=== PATIENT | female | born 1995 | race Caucasian/White ===

== ENCOUNTER 2016-11-25 21:42 | Inpatient (IN) | payer MEDICAID ==
[~2016-11-25] VITALS: Ht 152.4 cm; Wt 48.7 kg
[~2016-11-25 21:42] MED LIST: PNV1TABL17 PO
[2016-11-25 22:02] LABS: GLUCOSE,POINT OF CARE 85 MG/DL (70-110)
[2016-11-25] MEDS ORDERED: TRAM50TA4 PO (22:02)
[2016-11-25] MEDS ORDERED: LORA1TAB3 PO (22:02)
[2016-11-25 22:28] LABS: BASOPHILS % (AUTO) 0.4 % (0.0-2.0); EOSINOPHILS % (AUTO) 2.3 % (1.0-6.0); HEMATOCRIT 40.2 % (36-46); HEMOGLOBIN 12.9 g/dL (12.0-16.0); LYMPHOCYTES # (AUTO) 3.6 K/uL (1.0-4.8); LYMPHOCYTES % (AUTO) 40.1 % (22.0-44.0); MEAN CORPUSCULAR HEMOGLOBIN 28.4 pg (26.0-34.0); MEAN CORPUSCULAR HGB CONC 32.1 G/dL (31.0-37.0); MEAN CORPUSCULAR VOLUME 89 fL (80-100); MONOCYTES # (AUTO) 0.9 K/uL (0.1-1.0); MONOCYTES % (AUTO) 9.7 % (2.0-9.0); NEUTROPHILS # (AUTO) 4.2 K/uL (1.8-7.7); NEUTROPHILS % (AUTO) 47.5 % (40.0-70.0); PLATELET COUNT (AUTO) 311 K/uL (150-450); RED BLOOD CELL COUNT(AUTO) 4.54 MIL/uL (4.00-5.20); RED CELL DISTRIBUTION WIDTH 13.2 % (11.5-14.5); WHITE BLOOD COUNT (AUTO) 8.9 K/uL (4.5-11.0)
[2016-11-25 22:37] LABS: ANION GAP 11 mmol/L (8-16); CALCIUM, TOTAL 8.5 mg/dL (8.8-10.5); CARBON DIOXIDE 25 mmol/L (22-29); CHLORIDE 104 mmol/L (98-107); CREATININE 0.68 mg/dL (0.60-1.30); GLOMERULAR FILTR. RATE CALC > 60 mL/min (>60); POTASSIUM 3.1 mmol/L (3.5-5.1); SODIUM SERUM 140 mmol/L (136-145); UREA NITROGEN, BLOOD 7 mg/dL (7-18)
[2016-11-25 22:43] LABS: ALANINE AMINOTRANSFERASE 17 U/L (12-78); ALBUMIN 3.7 g/dL (3.4-5.0); ASPARTATE AMINOTRANSFERASE 12 U/L (15-37); BILIRUBIN,TOTAL 0.3 mg/dL (0.1-1.0)
[2016-11-25 22:49] LABS: SALICYLATE < 2.8 mg/dL (2.8-20.0)
[2016-11-25 22:53] LABS: ACETAMINOPHEN 12 mcg/mL (10-30)
[2016-11-26] MEDS ORDERED: POTASSIUM CHLORIDE 10% 40 MEQ/30 ML LIQUID UDCUP PO ONE (02:15)
[2016-11-26] MEDS ORDERED: HALOPERIDOL 5 MG TABLET PO PRN (02:30)
[2016-11-26] MEDS ORDERED: LORazepam 2 MG TABLET PO PRN (02:30)
[2016-11-26 03:03] LABS: APPEARANCE,URINE CLOUDY (CLEAR); GLUCOSE, URINE (UA) NEGATIVE (NEGATIVE); KETONES,URINE >=80 mg/dL (NEGATIVE); LEUKOCYTE ESTERASE ,URINE NEGATIVE (NEGATIVE); OCCULT BLOOD,URINE NEGATIVE (NEGATIVE); PROTEIN,URINE NEGATIVE (NEGATIVE)
[2016-11-26 03:05] LABS: ADD UA MICROSCOPIC NO
[2016-11-26 04:18] VITALS: BP 126/78
[2016-11-26] MEDS ORDERED: PNEUMOCOCCAL VACCINE POLYVALENT 0.5 ML VIAL [PPSV23] IM ONE (04:45)
[2016-11-26 08:05] VITALS: BP 113/73
[2016-11-26 08:42] LABS: CHOL/HDL RATIO 4.3 (3.9-5.7)
[2016-11-26] MEDS: ESCITALOPRAM OXALATE 10 MG TABLET PO SCH (12:46)
[2016-11-26] MEDS: LORazepam 1 MG TABLET PO PRN (16:23)
[2016-11-26 20:10] VITALS: BP 121/74
[2016-11-26] MEDS ORDERED: ACETAMINOPHEN 325 MG TABLET PO PRN (20:15)
[2016-11-26] MEDS ORDERED: ALBUTEROL SULFATE HFA 90 MCG/PUFF 8 GM INHALER IH PRN (20:15)
[2016-11-26] MEDS ORDERED: IBUPROFEN 400 MG TABLET PO PRN (20:15)
[2016-11-26] MEDS: ZOLPIDEM TARTRATE 10 MG TABLET PO PRN (21:13)
[2016-11-27 00:02] VITALS: BP 126/76
[2016-11-27 07:27] LABS: HEMOGLOBIN A1C 5.4 % (4.5-6.2)
[2016-11-27 07:45] LABS: CHOL/HDL RATIO 4.4 (3.9-5.7)
[2016-11-27 07:50] LABS: POTASSIUM 3.9 mmol/L (3.5-5.1)
[2016-11-27 08:19] VITALS: BP 131/81
[2016-11-27] MEDS: ESCITALOPRAM OXALATE 10 MG TABLET PO SCH (09:13)
[2016-11-27] MEDS: LORazepam 1 MG TABLET PO PRN ×2 (09:13→16:31)
[2016-11-27] MEDS ORDERED: ESCI10TA PO (14:51)
[2016-11-27 19:43] VITALS: BP 129/76
[2016-11-28 03:00] VITALS: BP 127/75
[2016-11-28] MEDS: ZOLPIDEM TARTRATE 10 MG TABLET PO PRN (03:08)
[2016-11-28 08:00] VITALS: BP 139/71
[2016-11-28] MEDS: LORazepam 1 MG TABLET PO PRN (09:01)
[2016-11-28] MEDS: ESCITALOPRAM OXALATE 10 MG TABLET PO SCH (09:01)
== END 2016-11-28 10:35 | disposition home or self-care (01) | DRG 751 ==
LOC: EMS 21:44 → 3EI 11-26 03:06
DX: F33.2 Major depressive disorder, recurrent severe without psychotic features (principal); E87.6 Hypokalemia; F12.90 Cannabis use, unspecified, uncomplicated; F43.12 Post-traumatic stress disorder, chronic; J45.909 Unspecified asthma, uncomplicated; T42.4X2A Poisoning by benzodiazepines, intentional self-harm, initial encounter; Y92.099 Unspecified place in other non-institutional residence as the place of occurrence of the external cause
CPT/HCPCS: 82962; 83036; 84132; 93005; 99285; G0480; G0481

== ENCOUNTER 2024-06-10 10:18 | Emergency (ER) | payer MEDICAID ==
[~2024-06-10] VITALS: Ht 157.5 cm; Wt 60.0 kg
[~2024-06-10 10:18] MED LIST changes: +ESCI-8 PO; -PNV1TABL17 PO
[2024-06-10 12:02] LABS: BASOPHILS % (AUTO) 0.4 % (0.0-2.0); EOSINOPHILS % (AUTO) 0.2 % (1.0-6.0); HEMATOCRIT 41.8 % (36-46); HEMOGLOBIN 13.9 g/dL (12.0-16.0); LYMPHOCYTES # (AUTO) 1.7 K/uL (1.0-4.8); LYMPHOCYTES % (AUTO) 15.6 % (22.0-44.0); MEAN CORPUSCULAR HGB CONC 33.2 G/dL (31.0-37.0); MEAN CORPUSCULAR VOLUME 88 fL (80-100); MONOCYTES # (AUTO) 0.7 K/uL (0.1-1.0); MONOCYTES % (AUTO) 6.7 % (2.0-9.0); NEUTROPHILS # (AUTO) 8.6 K/uL (1.8-7.7); NEUTROPHILS % (AUTO) 77.1 % (40.0-70.0); PLATELET COUNT (AUTO) 355 K/uL (150-450); RED BLOOD CELL COUNT(AUTO) 4.77 MIL/uL (4.00-5.20); RED CELL DISTRIBUTION WIDTH 13.2 % (11.5-14.5); WHITE BLOOD COUNT (AUTO) 11.1 K/uL (4.5-11.0)
[2024-06-10 12:10] LABS: ANION GAP 9 mmol/L (8-16); CALCIUM, TOTAL 8.6 mg/dL (8.8-10.5); CARBON DIOXIDE 24 mmol/L (22-29); CHLORIDE 106 mmol/L (98-107); CREATININE 0.72 mg/dL (0.60-1.30); GLOMERULAR FILTR. RATE CALC > 60 mL/min (>60); GLUCOSE,RANDOM 93 mg/dL (70-110); POTASSIUM 3.8 mmol/L (3.5-5.1); SODIUM SERUM 139 mmol/L (136-145); UREA NITROGEN, BLOOD 8 mg/dL (7-18)
[2024-06-10 12:13] LABS: COVID AG,FIA SOURCE NPH
[2024-06-10 12:42] LABS: ALCOHOL, BLOOD (SERUM) < 3 mg/dL (0-10)
[2024-06-10 12:47] LABS: TROPONIN I-HIGH SENSITIVITY Less Than 4 ng/L (<51)
[2024-06-10 12:48] LABS: HCG,QUANTITATIVE 1 mIU/mL (0-6)
[2024-06-10 13:07] LABS: SARS-COV2 (COVID) ANTIGEN,FIA Negative (Negative)
[2024-06-10] MEDS: TraMADol HCL 50 MG TABLET PO ONE (15:54)
[2024-06-10 16:41] LABS: APPEARANCE,URINE CLEAR (CLEAR); BILIRUBIN,URINE NEGATIVE (NEGATIVE); COLOR,URINE COLORLESS (YELLOW); GLUCOSE, URINE (UA) NEGATIVE (NEGATIVE); KETONES,URINE NEGATIVE (NEGATIVE); LEUKOCYTE ESTERASE ,URINE NEGATIVE (NEGATIVE); NITRATE,URINE NEGATIVE (NEGATIVE); OCCULT BLOOD,URINE NEGATIVE (NEGATIVE); PH,URINE 6.5 (5.0-8.0); PH,URINE DRUG SCREEN 6.5 (5.0-8.0); PROTEIN,URINE NEGATIVE (NEGATIVE); SPECIFIC GRAVITIY, URINE 1.007 (1.003-1.030); UROBILINOGEN,URINE <=1.0 mg/dL (<=1.0)
[2024-06-10 16:50] LABS: AMPHET/METH SCREEN,URINE NEGATIVE (NEGATIVE); BARBITURATE SCREEN, URINE NEGATIVE (NEGATIVE); BENZODIAZEPINES SCREEN,URINE NEGATIVE (NEGATIVE); CANNABINOID SCREEN,URINE POSITIVE (NEGATIVE); COCAINE SCREEN,URINE NEGATIVE (NEGATIVE); METHADONE SCREEN, URINE NEGATIVE (NEGATIVE); OPIATE SCREEN,URINE NEGATIVE (NEGATIVE); PHENCYCLIDINE SCREEN,URINE NEGATIVE (NEGATIVE)
[2024-06-10 16:51] LABS: ALCOHOL, URINE DRUG SCREEN NEGATIVE (NEGATIVE)
[2024-06-10 17:17] VITALS: BP 137/81; PULSE 93; RESP 18; TEMP 98.4; O2SAT 100
== END 2024-06-10 17:33 | disposition home or self-care (01) ==
LOC: EMS 10:18
DX: S09.90XA Unspecified injury of head, initial encounter (principal); R55 Syncope and collapse; R42 Dizziness and giddiness; M54.2 Cervicalgia; F41.9 Anxiety disorder, unspecified; J45.909 Unspecified asthma, uncomplicated; F12.90 Cannabis use, unspecified, uncomplicated; Z65.3 Problems related to other legal circumstances; Z79.899 Other long term (current) drug therapy; Z20.822 Contact with and (suspected) exposure to COVID-19; W22.8XXA Striking against or struck by other objects, initial encounter; Y93.89 Activity, other specified; Y92.89 Other specified places as the place of occurrence of the external cause; Y99.8 Other external cause status
CPT/HCPCS: 99285; 70450; 71045; 87426; 80048; 81003; 84484; 84702; 85025; 36415; 72125; 93005; 80307; G0480